=== PATIENT | male | born 1985 | race Caucasian/White ===

== ENCOUNTER 2020-09-19 22:44 | Emergency (ER) | payer MEDICAID ==
[~2020-09-19] VITALS: Ht 170.2 cm; Wt 81.6 kg
[2020-09-19 23:44] VITALS: BP 125/75
--- NOTE | 2020-09-19 23:47 | NUR ---
TO LOBBY A/W BED AMBULATORY
--- NOTE | 2020-09-20 01:00 | NUR ---
PATIENT PRESENTS TO ED WITH C/O LACERATION RIGHT HAND WHICH OCCURED AT 2130 WHILE CUTTING A BOX AT HOME . APPROX 6 CM LACERATION NOTED RIGHT HAND . DENIES N/V/D; SKIN IS PINK/WARM/DRY; AAOX4 WITH EVEN AND STEADY GAIT; LUNGS CLEAR BL; HR EVEN AND REGULAR; PT DENIES ANY FEVER, CP, SOB, OR COUGH AT THIS TIME; PATIENT STATES PAIN OF 10/10 AT THIS TIME; VSS; PATIENT POSITIONED FOR COMFORT; HOB ELEVATED; BEDRAILS UP X2; BED DOWN. ER MD MADE AWARE OF PT STATUS.
[2020-09-20] MEDS ORDERED: LIDOCAINE MPF 1% 10 MG/ML VIAL INJ ONE (01:20)
--- NOTE | 2020-09-20 01:45 | NUR ---
LAC REPAIR IN PROGRESS.
[2020-09-20] MEDS ORDERED: BACITRACIN OINT 500 UNITS/GM PKT TP ONE (02:11)
[2020-09-20 02:15] VITALS: BP 125/75
--- NOTE | 2020-09-20 02:15 | NUR ---
Patient discharged with v/s stable. Written and verbal after care instructions given and explained. Patient verbalized understanding. Ambulatory with steady gait. All questions addressed prior to discharge. Advised to follow up with PMD.
== END 2020-09-20 02:15 | disposition home or self-care (01) ==
LOC: MED 22:44
DX: S61.411A Laceration without foreign body of right hand, initial encounter (principal); W45.8XXA Other foreign body or object entering through skin, initial encounter; Y93.89 Activity, other specified; Y92.89 Other specified places as the place of occurrence of the external cause; Y99.8 Other external cause status
CPT/HCPCS: 12002; 90471; 90715; 99283; J2001

== ENCOUNTER 2021-12-21 13:53 | Emergency (ER) | payer SELFPAY ==
[~2021-12-21] VITALS: Ht 170.2 cm; Wt 81.6 kg
[2021-12-21 13:57] VITALS: BP 140/79
--- NOTE | 2021-12-21 13:57 | NUR ---
TO BED AMBULATORY
--- NOTE | 2021-12-21 14:00 | NUR ---
SEEN AND EXAMINED BY OCTAVIANO
[2021-12-21] MEDS ORDERED: MORPHINE SULFATE 5 MG/ML VIAL IM ONE (14:05)
[2021-12-21] MEDS ORDERED: cephALEXin 500 MG CAP PO ONE (14:05)
[2021-12-21] MEDS ORDERED: LIDOCAINE 2% 1000 MG/50 ML VIAL INJ ONE (14:05)
[2021-12-21] MEDS ORDERED: MORPHINE SULFATE 4 MG/ML SYR ONE (14:29)
[2021-12-21] MEDS ORDERED: MORPHINE SULFATE 10 MG/ML VIAL IM ONE (14:30)
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
--- NOTE | 2021-12-21 15:37 | NUR ---
PT'S WOUND CLEANED AND IRRIGATED WITH NORMAL SALNE AND BETADINE WITH DR SMITH'S ASSISTANCE.
[2021-12-21] MEDS ORDERED: BACITRACIN OINT 500 UNITS/GM PKT TP ONE (16:00)
[2021-12-21] MEDS ORDERED: CEPH-588 PO (16:11)
[2021-12-21] MEDS ORDERED: ACET-10509 PO (16:12)
[2021-12-21] MEDS ORDERED: ACET-5629 PO (16:12)
--- NOTE | 2021-12-21 16:25 | NUR ---
PT'S RIGHT THUMB DRESSED WITH XEROFORM GAUZE PAD AND NON-ADHERENT GAUZE PAD THEN WRAPPED WITH 2" GAUZE ROLL. ERMD NOTIFIED.
[2021-12-21 16:41] VITALS: BP 141/98
--- NOTE | 2021-12-21 16:41 | NUR ---
Patient discharged with v/s stable. Written and verbal after care instructions given and explained. Patient alert, oriented and verbalized understanding of instructions. Ambulatory with steady gait. All questions addressed prior to discharge. ID band removed. Patient advised to follow up with PMD. Rx of ACETAMINOPHEN PERCOCET KEFLEX given. Patient educated on indication of medication including possible reaction and side effects. Opportunity to ask questions provided and answered.
== END 2021-12-21 16:41 | disposition home or self-care (01) ==
LOC: MED 13:53
DX: S62.521B Displaced fracture of distal phalanx of right thumb, initial encounter for open fracture (principal); R03.0 Elevated blood-pressure reading, without diagnosis of hypertension; F17.210 Nicotine dependence, cigarettes, uncomplicated; Z79.899 Other long term (current) drug therapy; Z71.6 Tobacco abuse counseling; W23.0XXA Caught, crushed, jammed, or pinched between moving objects, initial encounter; Y93.89 Activity, other specified; Y92.89 Other specified places as the place of occurrence of the external cause; Y99.8 Other external cause status
CPT/HCPCS: 64450; 73140; 96372; 99284; J2001; J2270; 99283